=== PATIENT | male | born 2000 | race Caucasian/White ===

== ENCOUNTER 2022-06-19 07:36 | Emergency (ER) | payer BC ==
[2022-06-19] MEDS ORDERED: Midazolam HCl 2 mg/2 ml Vial ONE (09:07)
[2022-06-19] MEDS ORDERED: Diazepam 10 MG/2 ML SYRINGE ONE (09:15)
== END 2022-06-19 09:09 | disposition home or self-care (01) ==
LOC: ERS 07:36
DX: S16.1XXA Strain of muscle, fascia and tendon at neck level, initial encounter (principal)
CPT/HCPCS: 72125; 93005; 96374; J2250; J3360